=== PATIENT | female | born 1935 | race Caucasian/White ===

== ENCOUNTER 2019-12-22 13:07 | Inpatient (IN) | payer OTHER ==
[~2019-12-22] VITALS: Ht 165.1 cm; Wt 57.2 kg
--- NOTE | ~2019-12-22 | EMS ---
[address] [address] EMS Patient Care Report Name: KAITLIN JOSEPH Room: [facility] [place]#: [id number] Admission: 12/22/19 Attend Phys: Discharge: Date of : 37 Report #: [id number] THIS REPORT FOR: //name// Report Transmitted: 12/22/2019 13:03 EMS Care Summary [place] Incident [id number] @ 12/22/2019 12:20 Incident Location [address] [place] [address] Patient KAITLIN JOSEPH Female, 84 Years 1935 Patient Address [address] [place] [id number] Patient History Endocrine Condition - Other,Acquired absence of cervix and uterus,Other dorsalgia,Unspecified dementia, Patient Allergies No known allergies, Patient Medications Acetaminophen, Cholecalciferol, Colestipol, donepezil, Melatonin, potassium citrate, Simvastatin, Chief Complaint Altered Level of Consciousness Disposition Transported No Lights/[place] Dispatch Reason Sick Person Transported To [facility] Narrative Dispatched to address noted for a sick person. [facility] en route at time noted. 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 claims representative [address] [address] EMS Patient Care Report Name: KAITLIN JOSEPH Room: [facility] [place]#: [id number] Admission: 12/22/19 Attend Phys: Discharge: Date of : 37 Report #: [id number] stated that the patient came in today and presented with tachycardia and was more so confused than normal. Family reportedly took her out of [facility] due to poor care and is attempted home care. Staff member stated that she does not have a good history of the patient and family is a poor historian. Family was in the room with the patient. Patient was slumped over in a wheel chair and had weak radial pulses. Patient was able to lift her head and look at me but was mumbling. Family stated that, again, over the last weak she has become more altered, weaker and has not been eating her normal diet. [facility] was decided upon due to hospital status and [facility] and then buckled in. Once in ambulance, vitals where taken as noted. Patient had clammy and cool skin and her blood pressure appeared to be orthostatic with her pulse rate. 12 lead and IV with fluids started as noted. Patient was coughing up thick clear fluid as well. Lung sounds where clear. While en route, vitals where taken again as noted and no major change had occurred. Radio report was given at time noted. Arrived and I stopped the fluids for the patient as noted and took patient to room 4. Patient was moved to bed and RN took verbal report. RN signed for patient and patient care. END REPORT EMT-P Dick Villasenor Initial Vitals @12:37SpO2: 93, @12:37SpO2: 95, @12:57SpO2: 97, @13:01SpO2: 98, @13:02SpO2: 97, @12:51 @12:33P: 75,R: 12,BP: 147/102, @12:42P: 78,R: 12,BP: 116/73, @13:01P: 71,R: 12,BP: 111/59, @12:33GCS: 14, @12:42GCS: 14, @13:01GCS: 14, @12:30 @12:54Glucose: 221, Assessments @12:30MENTAL:SKIN:HEENT:LUNG SOUNDS:ABDOMEN:PELVIS//GI:EXTREMITIES:PULSE:NEURO: Impression Altered Mental Status Procedures @12:54 cc () Site: Forearm-RightResponse: UnchangedSucceeded@12:54 cc () Site: Forearm-RightResponse: UnchangedSucceeded@12:5112-Lead ECGResponse: [place] [address] EMS Patient Care Report Name: KAITLIN JOSEPH Room: [facility]#: [id number] Admission: 12/22/19 Attend Phys: Discharge: Date of : 37 Report #: [id number] Timeline 12:20,Call Received 12:20,Dispatch Notified 12:20,Psap Call 12:20,Dispatched 12:21,En Route 12:25,On Scene 12:30,At Patient 12:30,BP: / M,PULSE: ,RR: R,SPO2: Ox,ETCO2: ,BG: ,PAIN: ,GCS: , 12:33,BP: 147/102 M,PULSE: 75,RR: 12 R,SPO2: Ox,ETCO2: ,BG: ,PAIN: ,GCS: , 12:33,BP: / M,PULSE: ,RR: R,SPO2: Ox,ETCO2: ,BG: ,PAIN: ,GCS: 14, 12:37,BP: / M,PULSE: ,RR: R,SPO2: 93 Ox,ETCO2: ,BG: ,PAIN: ,GCS: , 12:37,BP: / M,PULSE: ,RR: R,SPO2: 95 Ox,ETCO2: ,BG: ,PAIN: ,GCS: , 12:42,BP: 116/73 M,PULSE: 78,RR: 12 R,SPO2: Ox,ETCO2: ,BG: ,PAIN: ,GCS: , 12:42,BP: / M,PULSE: ,RR: R,SPO2: Ox,ETCO2: ,BG: ,PAIN: ,GCS: 14, 12:51,12-Lead ECG,Response: UnchangedSucceeded, 12:51,BP: / M,PULSE: ,RR: R,SPO2: Ox,ETCO2: ,BG: ,PAIN: ,GCS: , 12:54, cc Site: Forearm-Right,Response: UnchangedSucceeded, 12:54, cc Site: Forearm-Right,Response: UnchangedSucceeded, 12:54,BP: / M,PULSE: ,RR: R,SPO2: Ox,ETCO2: ,B,PAIN: ,GCS: , 12:56,Depart Scene 12:57,BP: / M,PULSE: ,RR: R,SPO2: 97 Ox,ETCO2: ,BG: ,PAIN: ,GCS: , 13:01,BP: / M,PULSE: ,RR: R,SPO2: 98 Ox,ETCO2: ,BG: ,PAIN: ,GCS: , 13:01,BP: 111/59 M,PULSE: 71,RR: 12 R,SPO2: Ox,ETCO2: ,BG: ,PAIN: ,GCS: , 13:01,BP: / M,PULSE: ,RR: R,SPO2: Ox,ETCO2: ,BG: ,PAIN: ,GCS: 14, 13:02,BP: / M,PULSE: ,RR: R,SPO2: 97 Ox,ETCO2: ,BG: ,PAIN: ,GCS: , 13:05,At Destination 13:23,Call Closed Disclaimer v1.1 Copyright 2020 [employer] This EMS Care Summary contains data elements from the applicable legal record (which may be displayed differently). It is designed to provide pertinent information for the following purposes: continuity of care, clinical quality, and state data reporting. The complete legal record is available to ED staff and administrators of the receiving hospital in [employer] Patient Tracker. All data is provided "as is."
[2019-12-22 13:25] VITALS: BP 96/67
[2019-12-22] MEDS ORDERED: TYLENOL325 M1 PO (13:32)
[2019-12-22] MEDS ORDERED: COLESTID1 GM PO (13:33)
[2019-12-22] MEDS ORDERED: D3-501250 MCG PO (13:33)
[2019-12-22] MEDS ORDERED: ARICEPT10 M1 PO (13:33)
[2019-12-22] MEDS ORDERED: MELATONIN3 M1 PO (13:33)
[2019-12-22] MEDS ORDERED: SIMVASTATIN80 MG PO (13:34)
[2019-12-22] MEDS ORDERED: KLOR-CON 10 ER10 MEQ PO (13:34)
[2019-12-22 13:36] LABS: URINE BLOOD 3+ (Negative); URINE CLARITY CLOUDY; URINE COLOR YELLOW; URINE GLUCOSE-RANDOM NEGATIVE (Negative); URINE KETONES TRACE (Negative); URINE NITRITE-REFLEX NEGATIVE (Negative); URINE PROTEIN 1+ (Negative); URINE UROBILINOGEN 0.2 E.U./dl (0.2-1.0)
[2019-12-22 13:38] LABS: URINE BILIRUBIN 1+ (Negative); URINE LEUKOCYTES-REFLEX 3+ (Negative)
[2019-12-22 13:39] LABS: ICTOTEST (BILI CONFIRMATORY) Negative (Negative)
[2019-12-22 13:40] LABS: ABSOLUTE MONOCYTES 0.7 thou/uL (0.0-1.2); ABSOLUTE NEUTROPHILS 12.3 thou/uL (1.6-8.1); BASOPHILS 0.2 %; HEMATOCRIT 41.9 % (37.0-47.0); LYMPHOCYTES 13.3 %; MCH 28.9 pg (26.0-34.0); MCHC 33.3 g/dL (28.0-37.0); MCV 86.9 fL (80.0-100.0); MONOCYTES 4.8 %; MPV 7.8 fl. (7.2-11.1); NUCLEATED RBCS 0 /100WBC; PLATELET COUNT* 260 thou/uL (150-400); POLYS 81.7 %; RBC 4.82 mil/uL (4.20-5.00); RDW-CV 14.4 % (10.5-14.5)
[2019-12-22 13:50] LABS: APTT 26.4 Seconds (25.0-31.3); INR 1.1; PROTIME 11.8 Seconds (9.20-11.50)
[2019-12-22 13:53] LABS: CALCIUM 8.5 mg/dL (8.5-10.1); CREATININE 1.1 mg/dL (0.6-1.3); POTASSIUM 3.2 mmol/L (3.5-5.1)
[2019-12-22 13:54] LABS: SQUAMOUS 4-10 Moderate /LPF (0-3)
[2019-12-22 13:55] LABS: BACTERIA-REFLEX >30 Many /HPF (None Seen); CRYSTALS None Seen /LPF (None Seen); HYALINE CASTS 4-10 Moderate /LPF (None Seen); MUCUS 4-6 Moderate strn/LPF (None Seen); URINE RBC 0-2 Rare /HPF (0-2)
[2019-12-22 13:56] LABS: RENAL EPITHELIAL CELLS 0-3 Few /LPF (None Seen); WBC CLUMPS Few (None Seen)
[2019-12-22 14:04] LABS: ALBUMIN 2.4 g/dL (3.4-5.0); TOTAL BILIRUBIN 0.4 mg/dL (<0.1-1.0); TOTAL PROTEIN 6.8 g/dL (6.4-8.2)
[2019-12-22 16:59] VITALS: BP 123/82
[2019-12-22 17:00] VITALS: BP 119/79
[2019-12-22 20:00] VITALS: BP 114/80
[2019-12-23] VITALS: BP 98/63
[2019-12-23 05:08] LABS: ABSOLUTE LYMPHOCYTES 5.9 thou/uL (0.8-5.3); ABSOLUTE MONOCYTES 1.1 thou/uL (0.0-1.2); ABSOLUTE NEUTROPHILS 8.6 thou/uL (1.6-8.1); BASOPHILS 0.1 %; EOSINOPHILS 0.1 %; HEMATOCRIT 36.8 % (37.0-47.0); HEMOGLOBIN 12.4 gm/dL (12.0-15.0); LYMPHOCYTES 37.8 %; MCH 28.8 pg (26.0-34.0); MCHC 33.6 g/dL (28.0-37.0); MCV 85.6 fL (80.0-100.0); MONOCYTES 7.1 %; MPV 7.6 fl. (7.2-11.1); NUCLEATED RBCS 0 /100WBC; PLATELET COUNT* 235 thou/uL (150-400); POLYS 54.9 %; RDW-CV 14.3 % (10.5-14.5); WBC 15.7 thou/uL (4.0-11.0)
[2019-12-23 05:28] LABS: CALCIUM 7.5 mg/dL (8.5-10.1); CREATININE 0.6 mg/dL (0.6-1.3)
[2019-12-23 05:31] LABS: POTASSIUM 2.5 mmol/L (3.5-5.1)
--- NOTE | 2019-12-23 07:58 | EKG ---
[place] [address] ELECTROCARDIOGRAM REPORT Name: KAITLIN JOSEPH Room: [address] ADM IN [facility]#: [id number] Admission: 12/22/19 Attend Phys: Jonatan Mora Discharge: Date of : 37 Date of Service: 12/22/19 1336 Report #: [id number] THIS REPORT FOR: //name// [facility] ED Test Date: 2019-12-22 Test Time: 13:36:55 Pat Name: KAITLIN JOSEPH Department: Room: [facility] Gender: F Hammerer Helper: : 1935 Requested By: Von Molina Order Number: [id number] MD: Mariano Hubbard Measurements Intervals [place] Rate: 75 P: 38 ME: 156 QRS: 51 QRSD: 107 T: -5 QT: 438 QTc: 490 Interpretive Statements Sinus rhythm artifact noted RSR' in V1 or V2, right VCD or RVH Borderline T abnormalities, inferior leads Borderline prolonged QT interval No previous ECG available for comparison Electronically Signed On 12-23-2019 7:58:11 CDT by Mariano Hubbard [email or web address] <ELECTRONICALLY SIGNED> By: Mariano Hubbard MD, FAC 12/23/19 0758 1336 1336 Mariano Hubbard MD, [facility] /EPI
[2019-12-23 08:00] VITALS: BP 116/67
[2019-12-23 12:08] VITALS: BP 93/61
[2019-12-23 17:25] VITALS: BP 105/69
[2019-12-23 20:00] VITALS: BP 115/84
[2019-12-24] VITALS: BP 113/77
[2019-12-24 04:00] VITALS: BP 135/76
[2019-12-24 05:12] LABS: HEMATOCRIT 36.3 % (37.0-47.0); HEMOGLOBIN 12.3 gm/dL (12.0-15.0); MCH 28.9 pg (26.0-34.0); MCHC 33.8 g/dL (28.0-37.0); MCV 85.3 fL (80.0-100.0); MPV 7.6 fl. (7.2-11.1); RBC 4.26 mil/uL (4.20-5.00); RDW-CV 14.2 % (10.5-14.5); WBC 15.4 thou/uL (4.0-11.0)
[2019-12-24 05:45] LABS: CALCIUM 7.7 mg/dL (8.5-10.1); CREATININE 0.5 mg/dL (0.6-1.3)
[2019-12-24 05:48] LABS: POTASSIUM 2.9 mmol/L (3.5-5.1)
[2019-12-24 08:00] VITALS: BP 123/71
[2019-12-24 13:07] VITALS: BP 109/81
[2019-12-24 16:00] VITALS: BP 122/99
[2019-12-24 19:50] VITALS: BP 118/81
[2019-12-25 08:18] VITALS: BP 105/75
[2019-12-25 08:48] LABS: CALCIUM 7.7 mg/dL (8.5-10.1); CREATININE 0.5 mg/dL (0.6-1.3); MAGNESIUM 1.1 mg/dL (1.8-2.4); POTASSIUM 3.4 mmol/L (3.5-5.1)
[2019-12-25 15:41] VITALS: BP 115/71
[2019-12-25 21:30] VITALS: BP 143/95
[2019-12-26 03:45] LABS: HEMATOCRIT 36.3 % (37.0-47.0); HEMOGLOBIN 11.9 gm/dL (12.0-15.0); MCH 27.8 pg (26.0-34.0); MCHC 32.8 g/dL (28.0-37.0); MPV 8.2 fl. (7.2-11.1); RBC 4.27 mil/uL (4.20-5.00); RDW-CV 14.2 % (10.5-14.5); WBC 15.8 thou/uL (4.0-11.0)
[2019-12-26 03:59] LABS: CALCIUM 7.4 mg/dL (8.5-10.1); CREATININE 0.4 mg/dL (0.6-1.3); POTASSIUM 3.3 mmol/L (3.5-5.1)
[2019-12-26 07:47] VITALS: BP 137/88
[2019-12-26 16:12] VITALS: BP 142/88
[2019-12-26 22:01] VITALS: BP 116/74
[2019-12-27 08:30] VITALS: BP 90/60
[2019-12-27] MEDS ORDERED: AUGMENTIN 875-1 EACH PO (09:47)
[2019-12-27 11:08] VITALS: BP 116/74
== END 2019-12-27 17:05 | disposition home health service (06) | DRG 871 ==
LOC: M.ERS 13:07 → M.ORTHSURG 14:28 → M.2W 14:28 → M.TBA-ER 14:28 → M.2W 16:40 → M.ORTHSURG 12-24 16:12
PROVIDERS: Emergency Medicine Emergency Medical Services; ADMIT Internal Medicine; ATTEND Internal Medicine
DX: A41.9 Sepsis, unspecified organism (principal); E43 Unspecified severe protein-calorie malnutrition; G93.41 Metabolic encephalopathy; N39.0 Urinary tract infection, site not specified; N93.9 Abnormal uterine and vaginal bleeding, unspecified; B96.89 Other specified bacterial agents as the cause of diseases classified elsewhere; E87.6 Hypokalemia; E78.5 Hyperlipidemia, unspecified; I10 Essential (primary) hypertension; E11.9 Type 2 diabetes mellitus without complications; F03.90 Unspecified dementia, unspecified severity, without behavioral disturbance, psychotic disturbance, mood disturbance, and anxiety; Z20.828 Contact with and (suspected) exposure to other viral communicable diseases; Z68.21 Body mass index [BMI] 21.0-21.9, adult; Z90.710 Acquired absence of both cervix and uterus; Z79.899 Other long term (current) drug therapy; Z28.21 Immunization not carried out because of patient refusal